=== PATIENT | female | born 1975 | race African-American/Black ===

== ENCOUNTER 2016-06-25 15:48 | Emergency (ER) | payer SELFPAY ==
[~2016-06-25] VITALS: Ht 172.7 cm; Wt 72.2 kg
[~2016-06-25 15:48] MED LIST: 12 HOUR DECONG120 M1 PO; ANUSOL-HC21 GM PR; AUGMENTIN875 MG PO; FLEXERIL10 MG PO; MAGIC MOUTHWASH1 ML MM; MOTRIN600 MG PO; MOTRIN800 MG PO; NAPROSYN500 MG PO; NORCO 5/3251 TABLET PO; PREDNISONE10 MG PO; PREDNISONE20 MG PO; PSEUDOEPHEDRINE30 MG PO; SALINE MIST45 ML BOTH NARES; TESSALON PERLE100 MG PO; VENTOLIN HFA18 GM IH; ZITHROMAX Z-PA250 MG PO
[2016-06-25] MEDS ORDERED: VALIUM5 MG PO (18:46)
[2016-06-25] MEDS ORDERED: NORCO 5/3251 TABLET PO (18:46)
[2016-06-25] MEDS ORDERED: MOTRIN800 MG PO (18:46)
[2016-06-25 18:53] VITALS: BP 133/77
== END 2016-06-25 19:01 | disposition home or self-care (01) ==
LOC: EME 15:48
DX: M75.82 Other shoulder lesions, left shoulder (principal); S39.012A Strain of muscle, fascia and tendon of lower back, initial encounter; X50.0XXA Overexertion from strenuous movement or load, initial encounter; Y99.0 Civilian activity done for income or pay; F17.200 Nicotine dependence, unspecified, uncomplicated
CPT/HCPCS: 99281; 99284

== ENCOUNTER 2016-07-31 18:52 | Emergency (ER) | payer SELFPAY ==
[~2016-07-31] VITALS: Ht 172.7 cm; Wt 71.8 kg
[~2016-07-31 18:52] MED LIST changes: +VALIUM5 MG PO
[2016-07-31] MEDS ORDERED: ULTRAM50 MG PO (20:55)
[2016-07-31 21:20] VITALS: BP 150/94
== END 2016-07-31 21:21 | disposition home or self-care (01) ==
LOC: EME 18:52 → EXP 18:52
DX: S20.212A Contusion of left front wall of thorax, initial encounter (principal); W01.198A Fall on same level from slipping, tripping and stumbling with subsequent striking against other object, initial encounter; F17.200 Nicotine dependence, unspecified, uncomplicated
CPT/HCPCS: 71100; 99281; 99283

== ENCOUNTER 2017-04-16 12:04 | Emergency (ER) | payer BC ==
[~2017-04-16] VITALS: Ht 172.7 cm; Wt 72.7 kg
[~2017-04-16 12:04] MED LIST changes: +ULTRAM50 MG PO
[2017-04-16 13:25] LABS: HEMATOCRIT 39.8 % (36.0-46.0); HEMOGLOBIN 13.4 G/DL (11.9-15.5); MCH 29.5 PG (29.0-34.0); MCHC 33.7 G/DL (30.0-36.0); MCV 87.7 FL (83-99); PLATELET COUNT 279 K/uL (156-360); RBC DIS.WIDTH-CV 12.7 % (11.8-14.6); RBC DIS.WIDTH-SD 40.4 % (39-53); RED BLOOD COUNT 4.54 M/uL (3.80-5.20)
[2017-04-16 13:34] LABS: ALBUMIN 4.1 g/dL (3.2-4.8); CHLORIDE 104 mEq/L (99-109); POTASSIUM 4.1 mEq/L (3.7-5.4); SODIUM 138 mEq/L (136-147)
[2017-04-16 13:36] LABS: GLUCOSE 93 mg/dL (70-99); TOTAL PROTEIN 8.1 g/dL (6.4-8.3)
[2017-04-16 13:38] LABS: TOTAL BILIRUBIN 0.6 mg/dL (0.0-1.0)
[2017-04-16 13:40] LABS: ALKALINE PHOSPHATASE 96 IU/L (3-129); CREATININE 0.7 mg/dL (0.6-1.3); GFR ESTIMATE (CALCULATED) > 59 mL/min/
[2017-04-16 13:41] LABS: UREA NITROGEN (BUN) 6 mg/dL (9-23)
[2017-04-16 13:42] LABS: AST (GOT) 16 IU/L (2-34); DIRECT BILIRUBIN 0.3 mg/dL (0.0-0.3)
[2017-04-16 13:43] LABS: ALT (GPT) 10 IU/L (3-49); LIPASE 2 U/L (1.0-51.0)
[2017-04-16 13:51] LABS: APPEARANCE SL.HAZY ((CLEAR)); BILIRUBIN NEGATIVE; BLOOD NEGATIVE; COLOR YELLOW ((YELLOW)); GLUCOSE (STRIP) NEGATIVE; KETONES NEGATIVE; LEUKOCYTES TRACE; NITRITE NEGATIVE; PROTEIN (STRIP) 30; SPECIFIC GRAVITY 1.023 (1.000-1.030)
[2017-04-16 13:58] LABS: BACTERIA RARE /HPF; EPITHELIAL CELLS RARE /HPF; MUCUS 4+ /LPF; RED BLOOD CELLS 0-5 /HPF (0-5); WHITE BLOOD CELLS 0-5 /HPF (0-5)
[2017-04-16] MEDS ORDERED: BENTYL20 MG PO (14:22)
[2017-04-16] MEDS ORDERED: ZOFRAN ODT8 MG PO (14:22)
[2017-04-16] MEDS ORDERED: MUCINEX D ER T1 EACH PO (14:24)
[2017-04-16] MEDS ORDERED: TESSALON PERLE100 MG PO (14:24)
[2017-04-16] MEDS ORDERED: NAPROSYN500 MG PO (14:25)
[2017-04-16 14:32] VITALS: BP 133/111
== END 2017-04-16 14:33 | disposition home or self-care (01) ==
LOC: RME 12:04 → EME 12:04 → RME 14:33
PROVIDERS: Physician Assistant
DX: R11.2 Nausea with vomiting, unspecified (principal); R10.9 Unspecified abdominal pain; J06.9 Acute upper respiratory infection, unspecified; F17.200 Nicotine dependence, unspecified, uncomplicated
CPT/HCPCS: 80048; 80076; 81003; 83690; 85027; 87651 90; 99281; 99284; J0500

== ENCOUNTER 2017-04-24 22:27 | Emergency (ER) | payer BC ==
[~2017-04-24] VITALS: Ht 172.7 cm; Wt 70.1 kg
[~2017-04-24 22:27] MED LIST changes: +BENTYL20 MG PO; +MUCINEX D ER T1 EACH PO; +ZOFRAN ODT8 MG PO
[2017-04-25] MEDS ORDERED: AMOXICILLIN500 M1 PO (00:23)
[2017-04-25] MEDS ORDERED: SUDAFED 12-HOU120 MG PO (00:23)
[2017-04-25 00:29] VITALS: BP 116/72
== END 2017-04-25 00:44 | disposition home or self-care (01) ==
LOC: EME 22:27
DX: J32.9 Chronic sinusitis, unspecified (principal); R05 Cough; F17.200 Nicotine dependence, unspecified, uncomplicated
CPT/HCPCS: 99281; 99284